=== PATIENT | male | born 1980 | race Caucasian/White ===

== ENCOUNTER 2017-02-03 21:00 | Emergency (ER) | payer OTHER ==
[~2017-02-03] VITALS: Ht 175.3 cm; Wt 82.1 kg
[2017-02-03 21:00] VITALS: TEMP 36.9; Ht 175.3 cm; Wt 82.1 kg
[2017-02-03] MEDS ORDERED: SODIUM CHLORIDE 0.9% 1000ML 1,000 ML IV STA ×2 (21:15→22:28)
[2017-02-03] MEDS ORDERED: LORAZEPAM 2 MG/ML 1 ML VIAL IV STA (21:15)
[2017-02-03] MEDS ORDERED: ACETAMINOPHEN 500 MG TAB PO STA (21:15)
--- NOTE | 2017-02-03 21:21 | EMERGENCY ROOM VISIT NOTE ---
History Report prepared by Porfirio: Tito Lieberman Under the Supervision of: Dr. Bean Watkins M.D. First contact with patient: 21:09 Chief Complaint: SEIZURE Stated Complaint: SEIZURE History of Present Illness The patient is a 36 year old male who presents to the Emergency Room with complaints of an episode of a seizure occurring today. Per nurse, the patient was found by his crm marketing manager having a tonic clonic seizure. She notes that the patient was found to be seizing for a period of 5 minutes and was rigid when EMS arrived to the scene. The patient reports that he is experiencing posterior neck stiffness and is tired. He denies having any recollection of the episode. He states that he has no history of seizures, diabetes, and kidney problems. The patient appears somewhat confused. HPI limited and somewhat suspect. Majority of history obtained from nursing staff and EMS. Source of History: patient, EMS, nursing staff History Limited By: AMS Onset: today Symptom Intensity: global Quality: other Timing: other (an episode) Note: The patient states that he is tired and experiencing posterior neck stiffness. Review of Systems ROS was unattainable. Past Medical & Surgical Medical Problems: (1) No chronic problems Family History No pertinent family history stated. Social History Smoking Status: Never Smoker Marital Status: single Occupation Status: employed Current/Historical Medications Scheduled Acyclovir (Acyclovir), 400 MG PO BID Amphetamine-Dextroamphetamine 10MG (Adderall Xr 10MG), 10 MG PO QAM Lorazepam (Ativan), 1 MG PO Q8 Allergies Coded Allergies: No Known Allergies (Unverified , 02/03/17) Physical Exam Vital Signs Date Time Temp Pulse Resp B/P (MAP) Pulse Ox O2 Delivery O2 Flow Rate FiO2 02/03/17 22:46 108 18 127/91 99 Room Air 02/03/17 22:17 115 18 119/82 98 Room Air 02/03/17 21:20 131 02/03/17 21:00 36.9 136 15 130/89 93 Room Air Physical Exam GENERAL: Patient is in no acute distress. HEENT: Dry mucous membranes, pupils somewhat large but equal and reactive, abrasion to right forehead but no scalp hematomas. NECK: Diffusely mildly tender, no stepoff. No stridor or adenopathy. LUNGS: Clear to auscultation bilaterally, no wheeze, no rhonchi, breath sounds equal. HEART: Tachycardic with regular rhythm, no murmurs. ABDOMEN: Soft, nontender, bowel sounds positive, no hernias, no peritonitis. EXTREMITIES: No cyanosis or edema, full range of motion of all the joints without pain or difficulty, no signs for acute trauma. NEUROLOGIC: Somewhat confused, no focal motor deficits, appears postictal. Awake , alert. SKIN: No rash, no jaundice, no diaphoresis. Medical Decision & Procedures ER Provider Diagnostic Interpretation: Radiology results as stated below per my review and radiologist interpretation: CT OF THE HEAD WITHOUT CONTRAST FINDINGS: No acute intracranial hemorrhage, midline shift or mass effect is present. Ventricular system is normal. Basilar cisterns are patent. There are no extra-axial collections. Gil-white differentiation is maintained. There are no findings to suggest acute dural sinus thrombosis or acute territorial infarct. There is suspected mild atrophy for age. There is no calvarial fracture. Center Sales And Service Associate image demonstrates apparent distal right clavicular deformity and a possible Hill-Sachs deformity of the right shoulder. IMPRESSION: 1. No acute intracranial findings. 2. No calvarial fracture. 3. Distal right clavicular deformity which suggests an age indeterminate fracture. Possible right humeral head Hill-Sachs deformity. Electronically signed by: Alfonzo Pickett M.D. 02/03/2017 9:[address] OF THE CERVICAL SPINE WITHOUT CONTRAST FINDINGS: There is reversal of the normal cervical lordosis. Craniocervical junction is intact. There is no acute cervical spine fracture. There is mild disc space narrowing with osteophytosis at C5-C6. A lucency with corticated margins through the spinous process of C7 is chronic. There is no prevertebral edema. Center Sales And Service Associate image demonstrates deformity of the distal right clavicle with a possible Hill-Sachs deformity of the right humeral head. IMPRESSION: 1. No acute cervical spine fracture or subluxation. 2. Deformity of the distal right clavicle which suggests an age indeterminate fracture. If right shoulder pain, right shoulder radiographs could be obtained. Possible right humeral head Hill-Sachs deformity. Electronically signed by: Alfonzo Pickett M.D. 02/03/2017 9:58 PM Laboratory Results 02/03/17 20:46 Red Blood Count 5.39, Mean Corpuscular Volume 97.4, Mean Corpuscular Hemoglobin 32.1, Mean Corpuscular Hemoglobin Concent 33.0, Mean Platelet Volume 10.1, Neutrophils (%) (Auto) 50.8, Lymphocytes (%) (Auto) 36.2, Monocytes (%) (Auto) 11.0, Eosinophils (%) (Auto) 0.5, Basophils (%) (Auto) 0.9, Neutrophils # (Auto ) 4.32, Lymphocytes # (Auto) 3.08, Monocytes # (Auto) 0.94, Eosinophils # (Auto ) 0.04, Basophils # (Auto) 0.08 02/03/17 20:46 Test 02/03/17 20:46 02/03/17 21:31 02/03/17 22:13 White Blood Count 8.51 K/uL (4.8-10.8) Red Blood Count 5.39 M/uL (4.7-6.1) Hemoglobin 17.3 g/dL (14.0-18.0) Hematocrit 52.5 % (42-52) Mean Corpuscular Volume 97.4 fL (80-100) Mean Corpuscular Hemoglobin 32.1 pg (25-34) Mean Corpuscular Hemoglobin Concent 33.0 g/dl (32-36) Platelet Count 269 K/uL (130-400) Mean Platelet Volume 10.1 fL (7.4-10.4) Neutrophils (%) (Auto) 50.8 % Lymphocytes (%) (Auto) 36.2 % Monocytes (%) (Auto) 11.0 % Eosinophils (%) (Auto) 0.5 % Basophils (%) (Auto) 0.9 % Neutrophils # (Auto) 4.32 K/uL (1.4-6.5) Lymphocytes # (Auto) 3.08 K/uL (1.2-3.4) Monocytes # (Auto) 0.94 K/uL (0.11-0.59) Eosinophils # (Auto) 0.04 K/uL (0-0.5) Basophils # (Auto) 0.08 K/uL (0-0.2) RDW Standard Deviation 49.3 fL (36.4-46.3) RDW Coefficient of Variation 13.9 % (11.5-14.5) Immature Granulocyte % (Auto) 0.6 % Immature Granulocyte # (Auto) 0.05 K/uL (0.00-0.02) Anion Gap 25.0 mmol/L (3-11) Est Creatinine Clear Calc Drug Dose 69.7 ml/min Estimated GFR () 70.0 Estimated GFR (Non- 60.4 BUN/Creatinine Ratio 11.0 (10-20) Calcium Level 10.1 mg/dl (8.5-10.1) Magnesium Level 2.2 mg/dl (1.8-2.4) Total Bilirubin 0.7 mg/dl (0.2-1) Aspartate Amino Transf (AST/SGOT) 130 U/L (15-37) Alanine Aminotransferase (ALT/SGPT) 243 U/L (12-78) Alkaline Phosphatase 73 U/L (45-117) Total Protein 9.0 gm/dl (6.4-8.2) Albumin 4.8 gm/dl (3.4-5.0) Globulin 4.2 gm/dl (2.5-4.0) Albumin/Globulin Ratio 1.1 (0.9-2) Thyroid Stimulating Hormone (TSH) 2.580 uIu/ml (0.300-4.500) Chemistry Specimen Hemolysis Ethyl Alcohol mg/dL < 3.0 mg/dl (0-3) Urine Color YELLOW Urine Appearance CLEAR (CLEAR) Urine pH 5.5 (4.5-7.5) Urine Specific [place] 1.029 (1.000-1.030) Urine Protein TRACE (NEG) Urine Glucose (UA) NEG (NEG) Urine Ketones TRACE (NEG) Urine Occult Blood NEG (NEG) Urine Nitrite NEG (NEG) Urine Bilirubin NEG (NEG) Urine Urobilinogen NEG (NEG) Urine Leukocyte Esterase NEG (NEG) Urine WBC (Auto) 1-5 /hpf (0-5) Urine RBC (Auto) 0-4 /hpf (0-4) Urine Hyaline Casts (Auto) 1-5 /lpf (0-5) Urine Epithelial Cells (Auto) 5-10 /lpf (0-5) Urine Bacteria (Auto) NEG (NEG) Urine Opiates Screen NEG (NEG) Urine Methadone, Qualitative NEG (NEG) Urine Barbiturates NEG (NEG) Urine Phencyclidine (PCP) Level NEG (NEG) Ur Amphetamine/Methamphetamine POS (NEG) MDMA (Ecstasy) Screen NEG (NEG) Urine Benzodiazepines Screen NEG (NEG) Urine Cocaine Metabolite NEG (NEG) Urine Marijuana (THC) NEG (NEG) Laboratory results reviewed by me. Medications Administered Medications (Trade) Dose Ordered Sig/Jenelle Route Start Time Stop Time Status Last Admin Dose Admin Sodium Chloride 1,000 ml @ 999 mls/hr Q1H1M STAT IV 02/03/17 21:15 02/03/17 22:15 DC 02/03/17 21:15 999 MLS/HR Lorazepam (Ativan Inj) 1 mg NOW STAT IV 02/03/17 21:15 02/03/17 21:18 DC 02/03/17 21:24 1 MG Acetaminophen (Tylenol Tab) 1,000 mg NOW STAT PO 02/03/17 21:15 02/03/17 21:18 DC 02/03/17 21:23 1,000 MG Sodium Chloride 1,000 ml @ 999 mls/hr Q1H1M STAT IV 02/03/17 22:28 02/03/17 23:28 DC 02/03/17 22:28 999 MLS/HR Ketorolac Tromethamine (Toradol Inj) 30 mg NOW STAT IV 02/03/17 23:15 02/03/17 23:16 DC 02/03/17 23:21 30 MG ECG Indication: syncope Rate (beats per minute): 128 Rhythm: sinus tachycardia Findings: no acute ischemic change, no ectopy ED Course 2118: The patient was evaluated in room A9. A complete history and physical exam was performed. 2114: Acetaminophen 1000mg PO, Lorazepam 1mg IV, Sodium Chloride 1000 ml @ 999 mls/hr IV 8: Sodium Chloride 1000 ml @ 999 mls/hr IV 2310: I reevaluated and updated the patient. His parents are with him. I told him that he would not be able to drive until he is cleared by neurology. He agreed. 5: Toradol Inj 30mg IV 2341: Reevaluated the patient. Discussed results and discharge instructions: He verbalized understanding and agreement. The patient is ready for discharge. Medical Decision Differential diagnoses include: intracranial bleed, seizure, syncope, drug and alcohol abuse, infection, electrolyte abnormality, dehydration. There is no leukocytosis or concerning anemia. Renal panel testing shows an anion gap and dehydration. No kidney failure. There were a few liver enzyme elevations. The patient appears to be in a euthyroid state. Urinalysis shows some dehydration, no infection. Urine tox shows amphetamines which the patient is prescribed. Alcohol level was undetectable. Brain CT shows no acute bleed or mass effect. C-spine CT shows no acute fracture. EKG showed a sinus tachycardia, no acute ischemia. The patient was given oral Tylenol, 2 L of IV saline, IV Ativan, IV Toradol, his heart rate has improved, he is more comfortable. His mentation has cleared and he is back to baseline as per his parents who are now sitting at the bedside. The patient presents after a seizure. He was postictal during my first assessment but his mentation has now cleared and he is mentating normally. He does not remember the event but remembers feeling off this evening before the event reportedly occurred. The patient was told that he cannot drive, I did fill out paperwork revoking his license. He does have a family doctor and will follow with this office for a referral to neurology. He will need a neurology evaluation for this seizure. The patient states that he has not been sleeping, he has worked 80 hours this week. He has not been drinking. Certainly, his lack of sleep and excessive work could have led to the seizure. The patient is being discharged, hydration and rest were encouraged. The patient can use [id number] pain medications for the aches from the muscle spasm/seizure activity activity. He can return here for worsening symptoms or if not improving. No antiseizure medication indicated at this point. Further workup is warranted as an outpatient. Medication Reconcilliation Current Medication List: was personally reviewed by me Blood Pressure Screening Patient's blood pressure: Elevated blood pressure Blood pressure disposition: Elevated BP felt to be situational Impression Primary Impression: Seizure Additional Impression: Dehydration Scribe Attestation The scribe's documentation has been prepared under my direction and personally reviewed by me in its entirety. I confirm that the note above accurately reflects all work, treatment, procedures, and medical decision making performed by me. Departure Information Dispostion Home / Self-Care Forms HOME CARE DOCUMENTATION FORM, IMPORTANT VISIT INFORMATION Patient Instructions My [facility] [employer] Additional Instructions no driving until given clearance by neurology talk with violet soto monday about a neurology appt proper rest nightly--7-8 hours stay well hydrated, drink plenty of fluids all meds the same for now return for any return of symptoms motrin and or tylenol for pain and aches Problem Qualifiers
[2017-02-03 21:28] LABS: BASO % 0.9 %; BASO ABS # 0.08 K/uL (0-0.2); COMPLETE YES; EOS % 0.5 %; HEMATOCRIT 52.5 % (42-52); IG% 0.6 %; LYMPH % 36.2 %; LYMPH ABS # 3.08 K/uL (1.2-3.4); MEAN CELL VOLUME 97.4 fL (80-100); MEAN CORPUSCULAR HEMOGLOBIN 32.1 pg (25-34); MEAN PLATELET VOLUME 10.1 fL (7.4-10.4); NEUT % 50.8 %; PLATELET COUNT 269 K/uL (130-400); RED BLOOD COUNT 5.39 M/uL (4.7-6.1); WHITE BLOOD COUNT 8.51 K/uL (4.8-10.8)
[2017-02-03] MEDS ORDERED: ACYC400T PO (21:47)
[2017-02-03] MEDS ORDERED: AMPH10CA3 PO (21:47)
[2017-02-03] MEDS ORDERED: ATV/1 PO (21:47)
--- NOTE | 2017-02-03 21:56 | DIAGNOSTIC IMAGING REPORT ---
CT OF THE HEAD WITHOUT CONTRAST CLINICAL HISTORY: Altered mental status. Weakness. Seizure. COMPARISON STUDY: No previous studies for comparison. TECHNIQUE: Helical axial images of the head were obtained without IV contrast. Automated exposure control was utilized for the study. A dose lowering technique was utilized adhering to the principles of ALARA. FINDINGS: No acute intracranial hemorrhage, midline shift or mass effect is present. Ventricular system is normal. Basilar cisterns are patent. There are no extra-axial collections. Gil-white differentiation is maintained. There are no findings to suggest acute dural sinus thrombosis or acute territorial infarct. There is suspected mild atrophy for age. There is no calvarial fracture. Mash Filter Cloth Changer image demonstrates apparent distal right clavicular deformity and a possible Hill-Sachs deformity of the right shoulder. IMPRESSION: 1. No acute intracranial findings. 2. No calvarial fracture. 3. Distal right clavicular deformity which suggests an age indeterminate fracture. Possible right humeral head Hill-Sachs deformity. Electronically signed by: Alfonzo Pickett M.D. 02/03/2017 9:55 PM Dictated Date/Time: 02/03/2017 9:49 PM
--- NOTE | 2017-02-03 22:00 | DIAGNOSTIC IMAGING REPORT ---
CT OF THE CERVICAL SPINE WITHOUT CONTRAST CLINICAL HISTORY: Neck pain following fall. COMPARISON STUDY: No previous studies for comparison. TECHNIQUE: Helical axial images of the cervical spine were obtained without IV contrast. Sagittal and coronal reconstructions were viewed. A dose lowering technique was utilized adhering to the principles of ALARA. FINDINGS: There is reversal of the normal cervical lordosis. Craniocervical junction is intact. There is no acute cervical spine fracture. There is mild disc space narrowing with osteophytosis at C5-C6. A lucency with corticated margins through the spinous process of C7 is chronic. There is no prevertebral edema. Immigration Manager image demonstrates deformity of the distal right clavicle with a possible Hill-Sachs deformity of the right humeral head. IMPRESSION: 1. No acute cervical spine fracture or subluxation. 2. Deformity of the distal right clavicle which suggests an age indeterminate fracture. If right shoulder pain, right shoulder radiographs could be obtained. Possible right humeral head Hill-Sachs deformity. Electronically signed by: Alfonzo Pickett M.D. 02/03/2017 9:58 PM Dictated Date/Time: 02/03/2017 9:55 PM
[2017-02-03 22:03] LABS: ALB/GLOB RATIO 1.1 (0.9-2); CALCIUM 10.1 mg/dl (8.5-10.1); CREATININE 1.48 mg/dl (0.60-1.40); MAGNESIUM 2.2 mg/dl (1.8-2.4); POTASSIUM 3.2 mmol/L (3.5-5.1); THYROID STIMULATING HORMONE 2.58 uIu/ml (0.300-4.500)
[2017-02-03 22:47] LABS: BENZODIAZEPINE, URINE NEG (NEG); COCAINE,URINE NEG (NEG); PHENCYCLIDINE, URINE NEG (NEG)
[2017-02-03] MEDS ORDERED: KETOROLAC TROMETHAMINE 30 MG/ML VIAL IV STA (23:15)
[2017-02-03 23:30] LABS: URINE APPEARANCE CLEAR (CLEAR); URINE BILIRUBIN NEG (NEG); URINE COLOR YELLOW; URINE NITRITE NEG (NEG); URINE PH 5.5 (4.5-7.5); URINE SPECIFIC GRAVITY 1.029 (1.000-1.030); UROBILINOGEN NEG (NEG); ZZUR CULT IF INDIC CLEAN CATCH NO
[2017-02-03 23:32] LABS: MANUAL MICROSCOPIC REQUIRED? NO; REVIEW REQ? NO
[2017-02-03 23:47] VITALS: BP 137/87; PULSE 105; O2SAT 97
== END 2017-02-04 00:01 | disposition home or self-care (01) ==
LOC: C.EDA 21:05
DX: G40.909 Epilepsy, unspecified, not intractable, without status epilepticus (principal); E86.0 Dehydration; Z79.899 Other long term (current) drug therapy